=== PATIENT | male | born 1995 | race Two or more races ===

== ENCOUNTER 2019-12-17 16:57 | Emergency (ER) | payer SELFPAY ==
[2019-12-17] MEDS ORDERED: DIPHENHYDRAMINE HCL 25 MG CAPSULE PO ONE (17:13)
[2019-12-17] MEDS ORDERED: METHYLPREDNISOLONE INJ 125 MG/2 ML SDV IM ONE (17:13)
[2019-12-17] MEDS ORDERED: FAMOTIDINE 20 MG TABLET PO ONE (17:14)
[2019-12-17] MEDS ORDERED: TETRACAINE HCL 0.5% OPH SOLN 4 ML OS ONE (17:14)
--- NOTE | 2019-12-17 17:17 | ER Document Report ---
ED Medical Screen (RME) - General Chief Complaint: Eye Problem Stated Complaint: LEFT EYE PAIN Time Seen by Provider: 12/17/19 17:10 Mode of Arrival: Ambulatory Information source: Patient Notes: HPI; 24-year-old male presents emergency room complaining that he feels like there is something in his left eye. States approximately 2 hours prior to arrival he was walking and he got stung by a bee. States he removed the stinger without difficulty. About an hour ago he felt something blow into his left eye. Does wear contacts and glasses but did not have his contacts in at the time. PE: Alert and oriented x3. Mild distress noted. Left sclera injected with erythema and swelling noted. Erythema to left cheek noted. Purulent drainage noted. Lungs: Clear to auscultation without rales rhonchi wheezes. Heart: Regular rate and rhythm without murmurs rubs or gallops. I have greeted and performed a rapid initial assessment of this patient. A comprehensive ED assessment and evaluation of the patient, analysis of test results and completion of the medical decision making process will be conducted by additional ED providers. I have specifically instructed the patient or family members with the patient to immediately return to any nursing staff should anything change in the patient's condition or with their chief complaint. - Related Data Allergies/Adverse Reactions: morphine Allergy (Verified 12/17/19 17:14) Physical Exam - Vital signs Vitals: Temp Pulse Resp BP Pulse Ox 98.3 F 71 16 145/97 H 98 12/17/19 17:02 12/17/19 17:02 12/17/19 17:02 12/17/19 17:02 12/17/19 17:02 Course - Vital Signs Vital signs: Temp Pulse Resp BP Pulse Ox 98.3 F 71 16 145/97 H 98 12/17/19 17:02 12/17/19 17:02 12/17/19 17:02 12/17/19 17:02 12/17/19 17:02
[2019-12-17] MEDS ORDERED: TETRACAINE HCL 0.5% OPH SOLN 4 ML ONE (20:55)
--- NOTE | 2019-12-17 21:59 | ER Document Report ---
ED Eye Complaint - General Chief Complaint: Eye Problem Stated Complaint: LEFT EYE PAIN Time Seen by Provider: 12/17/19 17:10 Mode of Arrival: Ambulatory Notes: 24-year-old male with no pertinent past medical history presenting with being stung by a bee around 4 PM on his left cheek. States that shortly after he felt something flew into his eye and scraped across his eye. He currently denies any foreign body sensation at this time. He feels more of a pressure in his left eye. Dates that the swelling in his left cheek is gone down drastically and he is able to open his eye. Is injected at this time. He denies any eye pain with movement. Left eye is watery. No erythema surrounding the eye. He denies any additional symptoms at this time. He does wear glasses and contacts. - Related Data Allergies/Adverse Reactions: morphine Allergy (Verified 12/17/19 17:14) Past Medical History - General Information source: Patient - Social History Smoking Status: Unknown if Ever Smoked Family History: Reviewed & Not Pertinent Patient has homicidal ideation: No - Past Medical History Cardiac Medical History: Reports: None Pulmonary Medical History: Reports: None EENT Medical History: Reports: None Neurological Medical History: Reports: None Endocrine Medical History: Reports: None Review of Systems - Review of Systems Constitutional: No symptoms reported EENT: See HPI Cardiovascular: No symptoms reported Respiratory: No symptoms reported Gastrointestinal: No symptoms reported Genitourinary: No symptoms reported Male Genitourinary: No symptoms reported Musculoskeletal: No symptoms reported Physical Exam - Vital signs Vitals: Temp Pulse Resp BP Pulse Ox 98.3 F 71 16 145/97 H 98 12/17/19 17:02 12/17/19 17:02 12/17/19 17:02 12/17/19 17:02 12/17/19 17:02 Notes: Mildly hypertensive at 147/97 - Notes Notes: Adult General: GENERAL: Alert, interacts well. No acute distress HEAD: Normocephalic, atraumatic EYES: Pupils equal, round and reactive to light. Extraocular movements intact. Left eye with injection. Watery left eye. White/yellow dry discharge on lateral eye. No limbic injection. No visible foreign body seen. No eye tenderness. Is able to open eye. Eyelashes are normal. ENT: Oral mucosa moist, tongue midline. Oropharynx unremarkable. Airway p atent. Nares patent, sinuses nontender, ear canals unremarkable, TMs intact. NECK: Full range of motion. Supple. Trachea midline. No lymphadenopathy. LUNGS: Clear to auscultation bilaterally, no wheezes, rales, or rhonchi. No respiratory distress. Nontender chest wall. HEART: Regular rate and rhythm. No murmurs, rubs or gallops. ABDOMEN: Soft, nontender. Nondistended. GENITOURINARY: Deferred EXTREMITIES: Moves all 4 extremities spontaneously. BACK: Moves all extremities with full range of motion. NEUROLOGICAL: Alert and oriented x3. Normal speech. Strength 5/ 5 in all extremities. PSYCH: Normal affect, normal mood. SKIN: Warm, dry, normal turgor. No rashes or lesions noted. - HEENT Visual acuity- Right eye: 20/100 Visual acuity- Left eye: 20/100 Visual acuity- Both eyes: 20/100 Corrective lenses worn: No - usually wears corrective, not wearing them now Course - Re-evaluation Re-evalutation: 12/17/19 22:02 She reports that the swelling of his face has gone down drastically since receiving steroid, Pepcid and Benadryl in triage. States that his eye is no longer painful but states that it feels there is pressure with that. Denies any shortness of breath, throat closing or tongue swelling. I discussed with patient that we are waiting on the eye box as we do not know its current location to be able to perform a thorough eye exam. 12/18/19 01:43 The eye kit was found/provided. 2 drops of tetracaine was placed into the left eye. Fluorescein was then applied to the left eye. Under Pierre lamp exam no foreign body or corneal abrasions or ulcers were noted. Slit lamp exam was p erformed. Which showed no foreign bodies, corneal abrasions or ulcers. Patient's eye pressure was also tested via Josue-Pen. Left eye pressure is 22 with a 95% confidence interval. I have low suspicion for acute glaucoma at this time based on the presentation of the patient and the initial cause of his symptoms as being he felt like something flew into his eye. As patient does have an injected eye and a possible purulent discharge based upon the presentation of the dried yellow discharge on the lateral eye I will go ahead and prescribe patient antibiotic eyedrops for conjunctivitis. Discussed with patient strict return precautions to include worsening symptoms or development of new symptoms. Patient acknowledges and verbalizes understanding of instructions all questions answered. - Vital Signs Vital signs: Temp Pulse Resp BP Pulse Ox 98.3 F 71 16 145/97 H 98 12/17/19 17:02 12/17/19 17:02 12/17/19 17:02 12/17/19 17:02 12/17/19 17:02 Discharge - Discharge Clinical Impression: Allergic reaction Qualifiers: Encounter type: initial encounter Qualified Code(s): T78.40XA - Allergy, unspecified, initial encounter Conjunctivitis Qualifiers: Conjunctivitis type: unspecified Laterality: left Qualified Code(s): H10.9 - Unspecified conjunctivitis Condition: Stable Disposition: HOME, SELF-CARE Instructions: Eyedrop Use ([facility]), Conjunctivitis ([facility]), Acute Allergic Reaction ([facility]) Additional Instructions: Please apply eyedrops to your affected eye 3 times a day. For any worsening symptoms or development of new symptoms please return to the emergency department. Recommend follow-up with ophthalmology. Prescriptions: Besifloxacin HCl [Besivance 0.6% Oph Susp 5 ml] 1 drop OP TID #1 bottle
[2019-12-18 00:25] VITALS: BP 142/81
== END 2019-12-18 00:22 | disposition home or self-care (01) ==
LOC: ER 16:57
DX: T78.40XA Allergy, unspecified, initial encounter (principal); H10.9 Unspecified conjunctivitis; H57.12 Ocular pain, left eye; X58.XXXA Exposure to other specified factors, initial encounter; Z88.6 Allergy status to analgesic agent
CPT/HCPCS: 99282; J2930; J3490